=== PATIENT | female | born 1975 | race Two or more races ===

== ENCOUNTER 2024-07-13 22:22 | Emergency (ER) | payer MEDICAID, OTHER ==
[~2024-07-13] VITALS: Ht 154.9 cm; Wt 122.0 kg
[2024-07-14 04:58] VITALS: BP 182/82; TEMP 98.7
[2024-07-14 05:16] VITALS: PULSE 74; RESP 16; O2SAT 100
[2024-07-14] MEDS: ACETAMINOPHEN 500 MG TAB PO ONE (07:20)
[2024-07-14] MEDS ORDERED: ACET-1080 PO (07:55)
== END 2024-07-14 07:51 | disposition home or self-care (01) ==
LOC: ER 22:22
DX: G44.209 Tension-type headache, unspecified, not intractable (principal)
CPT/HCPCS: 70450